=== PATIENT | female | born 2005 | race African-American/Black ===

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

== ENCOUNTER 2024-03-10 17:30 | Emergency (ER) | payer OTHER, SELFPAY ==
[2024-03-10 17:51] VITALS: BP 105/52; PULSE 76; RESP 16; TEMP 36.8; O2SAT 100
[2024-03-10 18:03] LABS: EDUAAPPEAR Clear; EDUABILI Negative (Negative); EDUABLOOD Trace (Negative); EDUACOLOR1 Yellow; EDUAGLUCOSE Negative (Negative); EDUAKETONE Negative (Negative); EDUALEUKO Negative (Negative); EDUANITRATE Negative (Negative); EDUAPROTEIN Negative (Negative); EDUAUROBILI 0.2
--- NOTE | 2024-03-10 18:16 | ED.GENADULT ---
HPI - General Adult General Chief complaint: Urogenital-Female Stated complaint: UTI SYMPTOMS Time Seen by Provider: 03/10/24 18:16 Source: patient, RN notes reviewed and old records reviewed Mode of arrival: ambulatory Limitations: no limitations History of Present Illness HPI narrative: 19 year old female to [facility] for complaint of lower abdominal discomfort lower bilateral back discomfort urinary urgency and intermittent cloudy urine for 5 days. Patient states she Was concerned for urinary tract infection. Patient denies hematuria, incontinence, dysuria, concern for STIs, flank pain, numbness, weakness, tingling,bowel changes, allergies, pertinent medical history. Patient reports that she is currently on her menstrual cycle which is irregular. Patient states she has Nexplanon. Patient resting comfortably in exam room in no acute distress. Respirations even and nonlabored. Related Data Home Medications Medication Instructions Recorded Confirmed propranolol 20 mg tablet mg 06/23/23 01/27/24 sertraline 25 mg tablet mg 06/23/23 01/27/24 Allergies Allergy/AdvReac Type Severity Reaction Status Date / Time No Known Allergies Allergy Verified 03/10/24 19:49 Review of Systems Review of Systems: All systems reviewed & are unremarkable except as noted in HPI and below Constitutional: Constitutional: Reports no additional constitutional complaints Eyes: Eyes: Reports no additional eye complaints ENT: Reports system reviewed and no additional complaints, except as documented Cardiovascular: Cardiovascular: Reports no additional cardiovascular complaints, Denies chest pain and Denies dyspnea Respiratory: Respiratory: Reports no additional respiratory complaints, Denies cough and Denies dyspnea Gastrointestinal: Gastrointestinal: Reports as per HPI, Reports abdominal pain ( lower abdominal), Denies change in bowel habits, Denies nausea and Denies vomiting Genitourinary: Genitourinary: Reports as per HPI, Reports nocturia and Reports other ( intermittent cloudy urine per patient) Musculoskeletal: Musculoskeletal: Reports as per HPI, Reports back pain ( bilateral lower), Denies muscle weakness, Denies numbness and Denies tingling Neurologic: Reports system reviewed and no additional complaints, except as documented Psychiatric: Psychiatric: Reports no additional psychiatric complaints PMFSH Past Medical History Medical History No active medical problems Family History Family History Father No problems noted. Mother No problems noted. Sibling No problems noted. 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 There is no relevant family history pertinent to the patient complaint. Exam Const: General: cooperative, healthy appearing, comfortable, no acute distress, alert and well nourished Nutritional Appearance: well nourished Orientation/consciousness: patient oriented x3 Limitations: no limitations HENMT: Head:
== END 2024-03-10 18:47 | disposition short-term general hospital (02) ==
PROVIDERS: Emergency Provider Nurse Practitioner Family
DX: R10.32 Left lower quadrant pain (principal); R10.31 Right lower quadrant pain
CPT/HCPCS: 81003; 99212; G0463

== ENCOUNTER 2024-03-10 19:26 | Emergency (ER) | payer OTHER, SELFPAY ==
--- NOTE | ~2024-03-10 | CT_ITS ---
EXAMINATION: CT abdomen pelvis wo con DATE: 03/10/2024 22:38 INDICATION: lower back/abd pain and dysuria/freq; r/o stone TECHNIQUE: Computed tomography (CT) of the abdomen and pelvis was performed without intravenous contr ast. Automated exposure control and iterative reconstruction technique were employed. The dose-length product was 338.92 mGy-cm. COMPARISON: None. FINDINGS: Lower thorax: Unremarkable Liver: Normal. Biliary/Gallbladder: Gallbladder is normal. No bile duct dilation. Pancreas: No mass or duct dilation. Spleen: Normal. Adrenals:No mass. Kidneys: No suspicious mass, obstructing stone, or hydronephrosis. No proximal ureteral abnormality. GI tract: No small or large bowel dilation. Normal appendix. Mesentery/Peritoneum: No ascites, mass, or free air. Retroperitoneum: No mass. Pelvis: Pelvic organs are within normal limits. The distal ureters are difficult to trace. Small volu me free fluid in the deep pelvis, in physiologic range. Two calcifications in the right pelvis near t he expected pathway of the right ureter, measuring up to 3 mm (axial images 147 and 152). A third pun ctate calcification (image 149) is likely outside the normal pathway of the ureter. Soft Tissues: Soft tissues and body wall unremarkable. Bones: No acute osseous finding. IMPRESSION: No acute abdominopelvic process detected. No CT evidence of obstructive uropathy, noting the distal ureters are not well visualized and there a re two calcifications in the right pelvis near the expected path of the right ureter measuring up to [address] urography could provide clarification, if deemed clinically desirable. Reviewed, dictated and finalized at location K. IMPRESSION: No acute abdominopelvic process detected. No CT evidence of obstructive uropathy, noting the distal ureters are not well visualized and there are two calcifications in the right pelvis near the expect ed path of the right ureter measuring up to [address] urography could provide cl arification, if deemed clinically desirable.
[2024-03-10 19:49] VITALS: BP 118/75; PULSE 93; RESP 16; TEMP 36.6; O2SAT 98
[2024-03-10 22:22] LABS: BEDSIDEPREGUCG Negative (Negative)
[2024-03-10 22:24] LABS: Add Urine Microscopic? NO; Appearance Urine Clear (Clear); Bilirubin Urine Negative (Negative); Blood Urine Negative (Negative); Color Urine Yellow (Yellow); Glucose Urine UA Negative (Negative); Ketones Urine Negative (Negative); Leukocyte Esterase Ur Negative LEU/UL (Negative); Nitrate Urine Negative (Negative); Protein Urine Negative (Negative); Specific Grav Ur 1.012 (1.001-1.035); Urobilinogen Urine 0.2 mg/dL (<2.0); pH Urine 6.5 (5.0-9.0)
--- NOTE | 2024-03-10 22:52 | ED.ABDPAIN ---
HPI - Abdominal Pain General Chief Complaint: Abdominal Pain Stated Complaint: abd pain Time Seen by Provider: 03/10/24 21:27 History of Present Illness HPI narrative: Patient with 1wk intermittent lower abd/back pain and dysuria. No vaginal discharge or concerns for STD; no f/c, n/v. NO h/o kidney stones. Related Data Home Medications Medication Instructions Recorded Confirmed propranolol 20 mg tablet mg 06/23/23 01/27/24 sertraline 25 mg tablet mg 06/23/23 01/27/24 Allergies Allergy/AdvReac Type Severity Reaction Status Date / Time No Known Allergies Allergy Verified 03/10/24 19:49 Review of Systems Review of Systems: All systems reviewed & are unremarkable except as noted in HPI and below PMFSH Past Medical History Medical History No active medical problems Family History Family History Father No problems noted. Mother No problems noted. Sibling No problems noted. Social History Social History Smoking status: Never smoker Second hand tobacco smoke exposure: Yes Alcohol intake: current Substance use: never Substance use type: does not use Do You Feel Safe in your Home?: Yes Lack of Transportation: No Lack of Food: Never True Current Housing: I Have Housing Concerned About Future Housing: No Difficulty Paying Gas/Electric Bills: No Difficulty Paying for Meds: No Currently Unemployed: No Education: High School Diploma/GED Difficulty w/ Childcare or Family Care: No Living arrangements: dorm student housing Occupation/Education: student Additional occupation/education comments: [email or web address] Gender identity (if verbalized by the patient): Female Exam Narrative: EXAMINATION OF ORGAN SYSTEMS/BODY AREAS: Constitutional: Vital signs per nursing GENERAL:[No acute distress, non-toxic appearing.] HEAD: Normal with no signs of head trauma. EYES: EOMI, conjunctiva normal ENT: Hearing grossly intact LUNGS: Nonlabored breathing. HEART: [Regular rate and rhythm] ABD: [Soft], [nontender to palpation], no CVA tenderness EXT: Normal range of motion SKIN: [No rashes or lesions.] NEURO: [Alert and oriented x 3. No gross focal sensory or strength deficits.] PSYCH: Normal affect Course Vital Signs Vital signs: Vital Signs Temperature 97.8 F 03/10/24 19:49 Pulse Rate 93 03/10/24 19:49 Respiratory Rate 16 03/10/24 19:49 Blood Pressure 118/75 03/10/24 19:49 Pulse Oximetry 98 03/10/24 19:49 Oxygen Delivery Room Air 03/10/24 19:49 Temperature 97.8 F 03/10/24 19:49 Pulse Rate 93 03/10/24 19:49 Respiratory Rate 16 03/10/24 19:49 Blood Pressure 118/75 03/10/24 19:49 Pulse Oximetry 98 03/10/24 19:49 Oxygen Delivery Room Air 03/10/24 19:49 MDM - Abdominal Pain MDM Narrative Medical decision making narrative: Patient here with 1 week of intermittent lower abdominal/back pain and dysuria, well-appearing abdomen is soft and nontender without any CVA tenderness, preg test negative, UA negative, denies any concerns at all for STDs and she has no vaginal discharge. I did consider also possible kidney stone, CT abdomen pelvis obtained shows some punctate areas that may be consistent with nephrolithiasis without signs of obstruction. I did discuss these findings with the patient, she is resting comfortably here I did give her follow-up to Urology with return precautions, patient agreeable to this plan. Lab Data Labs: Lab Results 03/10/24 03/10/24 Range/Units 22:17 22:20 Urine Color Yellow (Yellow) Urine Appearance Clear (Clear) Urine pH 6.5 (5.0-9.0) Ur Specific [place] 1.012 (1.001-1.035) Urine Protein Negative (Negative) mg/dL Urine Glucose (UA) Negative (Negative) mg/dL Urine Ketones Negative (Negative) m
[2024-03-10 23:32] VITALS: BP 110/76; PULSE 76; RESP 16; TEMP 36.6; O2SAT 98
== END 2024-03-10 23:33 | disposition home or self-care (01) ==
PROVIDERS: Emergency Provider Emergency Medicine
DX: R30.0 Dysuria (principal); R10.30 Lower abdominal pain, unspecified
CPT/HCPCS: 74176; 81003; 81025; 99284

== ENCOUNTER 2025-05-12 12:49 | Emergency (ER) | payer OTHER, SELFPAY ==
[2025-05-12 13:10] VITALS: BP 131/85; PULSE 89; RESP 16; TEMP 36.4; O2SAT 100
[2025-05-12 13:12] LABS: EDUAAPPEAR Clear; EDUABILI Negative (Negative); EDUABLOOD 2+ (Negative); EDUACOLOR1 Yellow; EDUAGLUCOSE Negative (Negative); EDUAKETONE Negative (Negative); EDUALEUKO 1+ (Negative); EDUANITRATE Negative (Negative); EDUAPH 7.0; EDUAPROTEIN 2+ (Negative); EDUASPGRAVITY 1.025; EDUAUROBILI 0.2
--- NOTE | 2025-05-12 13:15 | ED.FEMALEGU ---
HPI - Female Genitourinary General Chief complaint: Urogenital-Female Stated complaint: UTI SYMPTOMS Time Seen by Provider: 05/12/25 13:00 Source: patient and RN notes reviewed Mode of arrival: ambulatory Limitations: no limitations History of Present Illness HPI Narrative: 20-year-old female presents [facility] complaining of urinary symptoms for 7 days. Patient reports having dysuria, increased frequency, lower abdominal pain. Patient denies any fevers, vaginal discharge, body aches, chills, nausea, vomiting, diarrhea, flank pain, vaginal bleeding, or any concerns STDs, any other symptoms. Patient has not taken anything [id number] for symptoms. Patient denies any significant past medical history. Related Data Home Medications ?Medication ?Instructions ?Recorded ?Confirmed ?Last Taken ?Type propranolol 20 mg tablet mg 06/23/23 03/17/25 Unknown History sertraline 25 mg tablet mg 06/23/23 03/17/25 Unknown History lamotrigine 25 mg tablet 25 mg PO 05/19/24 03/17/25 Unknown History Allergies Allergy/AdvReac Type Severity Reaction Status Date / Time No Known Allergies Allergy Verified 05/12/25 12:58 Review of Systems Review of Systems: CONSTITUTIONAL: Denies fever, chills, body aches, or sweats. EYES: Denies visual changes, redness, or discharge. ENT: Denies rhinorrhea, congestion, sore throat, or otalgia. CARDIOVASCULAR: Denies chest pain, palpitations, or edema. RESPIRATORY: Denies cough or dyspnea. GASTROINTESTINAL: Positive for abdominal pain. Negative for nausea, vomiting, or diarrhea. GENITOURINARY: Positive for dysuria, increased frequency. Negative for hematuria, vaginal bleeding, vaginal discharge. SKIN: Denies rash or itching. MUSCULOSKELETAL: Denies back pain, joint pain, or myalgia. NEUROLOGIC: Denies headache, numbness, or weakness. PSYCHIATRIC: Denies anxiety or depression. All other systems reviewed are negative, except as documented in HPI. [facility] Past Medical History Medical History Vaginal discharge Family History Family History Father No problems noted. Mother No problems noted. Sibling No problems noted. Social History Social History Smoking status: Never smoker Second hand tobacco smoke exposure: Yes Alcohol intake: current Substance use: current Substance use type: marijuana Do You Feel Safe in your Home?: Yes Lack of Transportation: YES Lack of Food: Never True Current Housing: I Have Housing Concerned About Future Housing: No Difficulty Paying Gas/Electric Bills: No Difficulty Paying for Meds: No Currently Unemployed: No Education: High School Diploma/GED Difficulty w/ Childcare or Family Care: No Living arrangements: dorm student housing Occupation/Education: student Additional occupation/education comments: [employer] Gender identity (if verbalized by the patient): Female Comments At the time of my signature, I reviewed and agree with the nursing past medical, surgical, social, and family history. There is no relevant family history pertinent to the patient complaint. Exam Narrative: GENERAL: This is a well-nourished, well-developed adult, in no apparent distress. They are non ill-appearing, nontoxic appearing. HEAD: normocephalic, atraumatic. EYES: Sclera clear/white. Vision is grossly intact. Conjunctiva normal bilaterally. Extraocular movements intact. EARS: External ears normal,Hearing grossly intact. NOSE: External nose normal THROAT: Mucous membranes moist NECK: Normal range of motion CARDIOVASCULAR: Regular rate and rhythm. Normal S1-S2. No clicks, gallops, rubs, murmurs. RESPIRATORY: Respiratory rate normal, respiratory effort nonlabored, no respiratory distress. Lung sounds clear to auscultation throughout. Lung sounds equal bilaterally. No adventitious lung sounds. GASTROINTESTINAL: Abdomen soft, flat, suprapubic tenderness to palpation, nondistended. Bowel sounds are active. No hepato-splenomegaly, or palpable masses. No guarding or rigidity. No rebound tenderness. SKIN: warm, Dry, intact with no suspicious lesions or rash, good texture and turgor. NEURO: awake, alert, and oriented to person, place and time. There were no obvious focal neurologic abnormalities. EXTREMITIES: No joint tenderness, effusion, or edema noted. BACK: Nontender without deformity. No CVA tenderness. Course Course Emergency Course: Portions of this record may have been created with voice recognition software Level of Care: Express Care Visit Vital Signs Vital signs: Vital Signs Temperature 97.5 F L 05/12/25 13:10 Pulse Rate 89 05/12/25 13:10 Respiratory Rate 16 05/12/25 13:10 Blood Pressure 131/85 05/12/25 13:10 Pulse Oximetry 100 05/12/25 13:10 Temperature 97.5 F L 05/12/25 13:10 Pulse Rate 89 05/12/25 13:10 Respiratory Rate 16 05/12/25 13:10 Blood Pressure 131/85 05/12/25 13:10 Pulse Oximetry 100 05/12/25 13:10 MDM - Female Genitourinary MDM Narrative Medical decision making narrative: Urine dipstick blood, protein, leukocytes. Urine culture pending. Symptoms consistent with urinary tract infection. Will treat with Macrobid. Discussed physical exam findings. Advised supportive measures and signs/symptoms to go to the ER. Pt is appropriate for outpt treatment and f/u. Differential Diagnosis Differential diagnosis: Likely urinary tract infection, cystitis and other (Pyelonephritis) Lab Data Attestation: I reviewed the patient's lab results. Labs: Lab Results 05/12/25 Range/Units 13:09 POC Urine Color Yellow POC Urine Clarity Clear POC Urine pH 7.0 POC Ur Specif [place] 1.025 POC Urine Protein 2+ (Negative) POC Ur Glucose (UA) Negative (Negative) POC Urine Ketones Negative (Negative) POC Urine Blood 2+ (Negative) POC Urine Nitrite Negative (Negative) POC Urine Bilirubin Negative (Negative) POC Urine Urobilinogen 0.2 POC U Leukocyte Esteras 1+ (Negative) Discharge Plan Discharge Clinical Impression: Urinary tract infection Qualifiers: Urinary tract infection type: site unspecified Hematuria presence: with hematuria Qualified Code(s): N39.0 - Urinary tract infection, site not specified Patient Disposition: Home Condition: Stable Instructions: Antibiotic Form, Urinary Tract Infection in Women (ED) Additional Instructions: Take the antibiotic as prescribed The urine will be sent of for a culture to identify what type of bacteria is causing your infection. If the culture shows that the antibiotic will not get rid of your infection, you will be notified and a new antibiotic will be called in for you. Increase water intake you will need to follow up with your PCP 3-5 days. Go to the ER for any worsening symptoms, abdominal pain, flank pain, fevers, nausea, vomiting, or any other concerns Patient Language: Italian Prescriptions: New nitrofurantoin monohyd/m-cryst [Macrobid] 100 mg capsule 100 mg PO Q12H 5 Days Qty: 10 0RF Rx Instructions: must administer with a meal/food No Action lamotrigine 25 mg tablet 25 mg PO sertraline 25 mg Tablet propranolol 20 mg Tablet Follow-up/Referrals: Mathew,Olga [Other] Stand Alone Forms: Work/School Release IP Time of Disposition: 13:12
== END 2025-05-12 13:15 | disposition home or self-care (01) ==
DX: N39.0 Urinary tract infection, site not specified (principal)
CPT/HCPCS: 81003; 87086; 99213; G0463